=== PATIENT | female | born 1990 | race Caucasian/White ===

== ENCOUNTER 2019-01-05 14:02 | Emergency (ER) | payer MEDICAID, OTHER ==
[~2019-01-05] VITALS: Ht 152.4 cm; Wt 75.1 kg
[2019-01-05 14:05] VITALS: BP 127/76
--- NOTE | 2019-01-05 14:10 | NUR ---
PT PROVIDED URINE SAMPLE AND THEN AMBULATED TO THE LOBBY, JELLY.
--- NOTE | 2019-01-05 14:44 | NUR ---
PT AMBULATED TO BED 06.
--- NOTE | 2019-01-05 14:53 | NUR ---
28 Y FEMALE BIB SELF C/O VAGINAL PAIN AND SWELLING X 1 DAY. PT GAVE 12/28/18. PT REPORTS 1-2 PADS PER DAY. DENIES UTI SYMPTOMS, FEVER, N/V/D. REPORTS CONSTIPATION AND LOWER ABD PAIN FROM . ABDOMEN SOFT AND ROUND. PAIN 8/10 ACHING. [id number]. VSS AT THIS TIME. BED IS DOWN, LOCKED, BED RAIL X 1, ERMD TO SEE PT. MEDHX:DENEIS RX:DENIES
[2019-01-05 15:52] VITALS: BP 128/88
--- NOTE | 2019-01-05 15:52 | NUR ---
Patient discharged with v/s stable. Written and verbal after care instructions given and explained. Patient alert, oriented and verbalized understanding of instructions. Ambulatory with steady gait. All questions addressed prior to discharge. ID band removed. Patient advised to follow up with PMD. Rx of ANUSOL HC 2.5% AND COLACE 100MG given. Patient educated on indication of medication including possible reaction and side effects. Opportunity to ask questions provided and answered.
== END 2019-01-05 15:52 | disposition home or self-care (01) ==
LOC: MED 14:02
DX: K64.4 Residual hemorrhoidal skin tags (principal); K59.00 Constipation, unspecified; R03.0 Elevated blood-pressure reading, without diagnosis of hypertension
CPT/HCPCS: 81002; 81025; 99283